=== PATIENT | male | born 1990 | race Caucasian/White ===

== ENCOUNTER 2016-12-15 10:11 | Emergency (ER) | payer OTHER ==
--- NOTE | ~2016-12-15 | CT4 ---
[facility] RADIOLOGY TEXT RESULTS PATIENT: ELTON CHAMBERS LOCATION: SED : [birth year] UNIT #: [id number] AGE: [address]: RUTH COY SEX: M ORDER DR: [id number] [address] [address] [id number] MR#: [id number] Acc #: [id number] NAME: ELTON CHAMBERS : 1990 SEX: M STUDY DATE/TIME: 12/15/2016 12:33 UNIT: SED ROOM: STUDY DESCRIPTION: CT Abd and Pelv Wo Cont Attending Physician: (Sedrick) Ruth Coy Ordering Physician: (Sedrick) Ruth Coy MEDICAL IMAGING REPORT This report is preliminary unless electronic signature is present. EXAM CT abdomen and pelvis without contrast. INDICATIONS Fever, cough, headache, body aches for the past 4 days, with left upper quadrant and epigastric region pain for the past [address] of the abdomen and pelvis. This CT exam was performed with one or more of the following radiation dose reduction techniques: automatic exposure control, adjustment of mA and/or kV according to patient size, and iterative reconstruction COMPARISON None. FINDINGS ABDOMEN WITHOUT CONTRAST: Included lung bases are clear. The liver, spleen, kidneys, adrenal glands, pancreas and gallbladder have an unremarkable unenhanced appearance. Bowel loops are nondilated. There is thickening and mild haziness around the ascending colon. Appendix is nondilated. PELVIS WITHOUT CONTRAST: There is a trace amount of fluid in the pelvis and right lower quadrant of the abdomen, presumed reactive. No aggressive appearing bone lesion. IMPRESSION 1. Ascending colitis. 2. Appendix is unremarkable. [facility] RADIOLOGY TEXT RESULTS PATIENT: ELTON CHAMBERS LOCATION: SED : 91 UNIT #: [id number] AGE: [address]: RUTH COY SEX: M ORDER DR: Dictated by... Jose De Jesus E. Elvin, M.D. THIS IS AN ELECTRONICALLY VERIFIED REPORT Jose De Jesus Oconnor M.D. at 12/18/2016 8:51 AM OLIVA/[email or web address] TD: 12/15/2016 16:45 JOB #: [id number] MEDICAL IMAGING REPORT Page 1 of 1
[2016-12-15 11:31] LABS: BASOPHIL% 0.3 % (0-2.5); EOSINOPHIL% 0.5 % (0.0-7.0); HEMATOCRIT 40.6 % (38.0-50.0); HEMOGLOBIN 14.3 gm/dL (13.0-16.0); LYMPHOCYTE# 1.1 X10e3 (1.0-3.5); LYMPHOCYTE% 14.4 % (17.0-45.0); MEAN CELL VOLUME 89.7 FL (83-96); MEAN CORPUSCULAR HEMOGLOBIN 31.7 PG (28-34); MEAN CORPUSCULAR HGB CONC 35.4 g/dL (30-36); MEAN PLATELET VOLUME 8.2 FL (6.5-11.5); MONOCYTE# 0.8 X10e3 (0-1.0); MONOCYTE% 10.5 % (3.0-12.0); NEUTROPHIL# 5.5 X10e3 (1.5-7.1); NEUTROPHIL% 74.3 % (40-75); PLATELET COUNT 215 X10e3 (140-420); RED BLOOD COUNT 4.52 X10e (3.90-5.60); RED CELL DISTRIBUTION WIDTH 13.2 % (11.0-15.5); WHITE BLOOD COUNT 7.4 X10e3 (4.0-10.5)
[2016-12-15 11:32] LABS: DIFF IND NO
[2016-12-15 11:42] LABS: BILIRUBIN, DIRECT 0.2 mg/dL (0.0-0.2); BILIRUBIN,INDIRECT 0.4 mg/dL (0.0-0.9); BILIRUBIN,TOTAL 0.6 mg/dL (0.2-2.0); CREATININE SERUM 1.1 mg/dL (0.6-1.4); GLOM FILT RATE Estimated 92.8 mL/min (>60); PROTEIN TOTAL SERUM 7.5 g/dL (6.0-8.3)
[2016-12-15 11:59] LABS: URINE APPEARANCE CLEAR; URINE BILIRUBIN NEG (NEG); URINE BLOOD 2+ (NEG); URINE COLOR YELLOW; URINE GLUCOSE NEG (NORM); URINE KETONE 1+ (NEG); URINE LEUKOCYTE ESTERASE NEG (NEG); URINE NITRATE NEG (NEG); URINE PH 5.5 (5-8); URINE PROTEIN NEG (NEG); URINE SOURCE CLEAN CATCH
[2016-12-15 12:12] LABS: MICRO INDICATED? YES
[2016-12-15 12:21] LABS: CULTURE INDICATED? NO; URINE BACTERIA NEG (NEG); URINE RBC 0-2 /[HPF] (0-2); URINE SQUAMOUS EPITHELIAL CELL FEW /[HPF]; URINE WBC NEG /[HPF] (0-5)
== END 2016-12-15 13:43 | disposition home or self-care (01) ==
LOC: SED 10:11
PROVIDERS: Physician Assistant
DX: K52.9 Noninfective gastroenteritis and colitis, unspecified (principal); R05 Cough; Z79.899 Other long term (current) drug therapy
CPT/HCPCS: 36415; 74176; 80048; 80076; 81003; 82150; 83690; 85025; 96374; 96375; 99284; C9113; J2405